=== PATIENT | male | born 2005 | race Caucasian/White ===

== ENCOUNTER 2024-01-01 01:14 | Emergency (ER) | payer OTHER ==
[~2024-01-01] VITALS: Ht 180.3 cm; Wt 63.5 kg
[2024-01-01 01:27] VITALS: BP 101/42; TEMP 97.7; O2SAT 99
== END 2024-01-01 02:22 | disposition left against medical advice (07) ==
LOC: ER 01:15
DX: F10.129 Alcohol abuse with intoxication, unspecified (principal); Z53.21 Procedure and treatment not carried out due to patient leaving prior to being seen by health care provider